=== PATIENT | female | born 1950 | race Caucasian/White ===

== ENCOUNTER → 2021-04-18 09:32 | Outpatient (BNVA) | payer BC, SELFPAY | PROVIDERS: PCP Family Medicine; Visit Provider Nurse Practitioner Family ==

== ENCOUNTER → 2021-10-26 14:58 | Outpatient (REF) | payer BC, SELFPAY | LOC: HO.SL 14:58 | PROVIDERS: Visit Provider Nurse Practitioner Family | DX: G47.9 Sleep disorder, unspecified (principal); G47.19 Other hypersomnia; R06.83 Snoring; G20 Parkinson's disease | CPT/HCPCS: 95806 ==